=== PATIENT | male | born 1980 | race Caucasian/White ===

== ENCOUNTER 2023-01-21 12:21 | Emergency (ER) | payer SELFPAY ==
--- NOTE | ~2023-01-21 | XR_ITS ---
EXAMINATION: XR SHOULDER, LEFT CLINICAL INFORMATION: Pain COMPARISON: None available. TECHNIQUE: Three views of the left shoulder. FINDINGS: There is no evidence for an acute fracture or dislocation. There is some widening of the AC joint. This could represent the patient's baseline and element of AC joint separation cannot be excluded. Measures 8 to 9 mm. Some possible mild acromial spurring. XR/XR shoulder LT min 2V IMPRESSION: No acute finding. Some increased distance noted in the AC joint could represent the patient's baseline. An element of AC joint separation cannot be excluded.
--- NOTE | 2023-01-21 12:49 | ECG_ITS ---
Test Reason : L SHOULDER PAIN Blood Pressure : / mmHG Vent. Rate : 063 BPM Atrial Rate : 063 BPM P-R Int : 184 ms QRS Dur : 090 ms QT Int : 370 ms P-R-T Axes : 042 026 022 degrees QTc Int : 378 ms Normal sinus rhythm Normal ECG No previous ECGs available Referred By: Generic ED Physician Electronically Signed By:JOHN HERNANDEZ
[2023-01-21 13:02] VITALS: BP 122/90; PULSE 70; RESP 20; TEMP 36.5; O2SAT 94; BMI 31.9
--- NOTE | 2023-01-21 13:03 | ED_ITS ---
HPI - General Adult General Chief complaint: Extremity Problem Stated complaint: L shoulder pain no inj Time Seen by Provider: 01/21/23 14:32 Source: patient Mode of arrival: ambulatory Limitations: no limitations History of Present Illness HPI narrative: 42 yold male presents to the ED for left chronic shoulder exacerbation. patient denies any chest pain, shortness of breath, fever, chills, nausea, vomitting, swelling of extremity, recent long travel, or recent surgery. patient states he in crunching sound in shoulder when he moves shoulder. Related Data Previous Rx's Medication Instructions Recorded cyclobenzaprine 10 mg tablet 10 mg PO BEDTIME PRN muscle spasm 01/21/23 8 days #8 tabs naproxen 500 mg tablet 500 mg PO BID PRN pain #14 tabs 01/21/23 Allergies Allergy/AdvReac Type Severity Reaction Status Date / Time No Known Allergies Allergy Verified 01/21/23 13:06 Review of Systems 2 Review of Systems: LEft shoulder pain. hearing crunch Yes all other systems are reviewed and are negative [facility] Social History Social History Advance Directives: No Advance Directives Information Provided: Yes Physical Exam ED Vital Signs: Vital Signs - 24 hr 01/21/23 13:02 01/21/23 15:10 Temperature 97.7 F 98 F Pulse Rate 70 72 Respiratory Rate 20 18 Blood Pressure 122/90 H 124/88 Pulse Oximetry 94 97 Oxygen Delivery Method Room Air Room Air BMI result Body Mass Index 31.9 Const General: cooperative, healthy appearing, comfortable, no acute distress, well developed, alert and awake Orientation/consciousness: oriented to person, oriented to place, oriented to time and patient oriented x3 HENMT Head: Yes normal to inspection, Yes No palpable skull fracture present, Yes normocephalic and Yes atraumatic Eyes General: appearance normal, both eyes and all related structures Neck Neck: Yes normal visual inspection, Yes full ROM, Yes no lymphadenopathy, Yes no meningeal signs, Yes trachea midline, Yes supple, No anterior neck swelling and No tender Chest Chest palpation & inspection: normal inspection of the chest and normal palpation of entire chest wall Resp Effort & Inspection: normal respiratory effort and able to speak in complete sentences Auscultation: clear to auscultation bilaterally Cardio Jugular venous distension: no JVD Heart sounds: S1 normal heart sound present and S2 normal heart sound present GI Inspection: Yes normal to inspection and No abdominal wall ecchymosis Palpation (GI): Soft to palpation, not firm, nontender, no guarding and not rigid General: No CVA tenderness and Yes no CVA tenderness Back/Spine/Pelvis Back: no CVA tenderness, No CVA tenderness and No back tenderness Skin General skin exam: no rashes or lesions noted, elasticity normal and turgor normal Neuro General: oriented to person, oriented to place, oriented to time, patient oriented x3, gait normal, tone normal, moves all extremities, Normal light touch and pain sensation, no meningeal signs, no focal motor deficits, CN's II-XI intact bilaterally and normal sensation to monofilament Extrem General: Yes normal to inspection Shoulder/upper arm images: 2 1. positive for tenderness on palpation. Positive for pain on range of motion. Negative for any ecchymosis, crepitus, erythema, swelling, or deformity. Motor/ neuro/vascular exam intact of extremity Psych Appearance: grossly normal, well kempt and not disheveled Course Course Course Narrative: This is a rapid medical exam: Additional HPI, ROS, PE not included below will be deferred to primary provider. Patient is a 42-year-old male presenting to the emergency department with complaint of left anterior shoulder pain for a few days. States I've been dealing with it for a while, it comes and goes. Reports feels like a pinched nerve. Increased pain with lifting arm. Has used ibuprofen at home. Does a lot of lifting for work, called out last night due to the pain. Denies any precipitation injury/trauma. Plan: x-ray Medical Decision Making Medical Decision Making [facility] Narrative: 42-year-old male presents to ED for left chronic shoulder pain exacerbation that is worse on movement and hearing crunching sound when move shoulder. Patient denies any recent long travel, recent surgery, recent trauma, swelling, chest pain, neck pain, pleurisy, redness, blue discoloration, or shortness of breath. EKG negative STEMI. Troponin negative. Patient is safe for discharge Differential Diagnosis Differential Diagnoses: The differential diagnosis associated with the presentation includes ( myocardial infarction, shoulder fracture, shoulder dislocation, shoulder muscle tear) Admission/Observation Consideration of admission/observation: Escalation of care including admission/observation considered Lab Data [facility] Lab Attestation statement: I reviewed the patient's lab results. 01/21/23 14:48 01/21/23 14:48 Labs: Lab Results 01/21/23 Range/Units 14:48 WBC 7.6 (4.8-10.8) X10*3/uL RBC 5.28 (4.60-5.80) X10*6/uL Hgb 16.4 (14.0-18.0) g/dl Hct 45.7 (42.0-52.0) % MCV 86.6 (80.0-98.0) fL MCH 31.1 (27.0-33.0) pg MCHC 35.9 (31.0-36.0) g/dl RDW 12.2 (11.0-16.0) % Plt Count 268 (160-400) X10*3/uL MPV 9.0 L (9.4-12.4) fL Immature Gran % (Auto) 0.3 (0.0-0.4) % Neut % (Auto) 61.4 (45-73) % Lymph % (Auto) 24.2 (20-40) % [place] % (Auto) 7.9 (2-11) % Eos % (Auto) 5.9 H (0-4) % Baso % (Auto) 0.3 (0-2) % Lymph # (Auto) 1.9 (1.2-4.9) X10*3/uL [place] # (Auto) 0.6 (0.1-1.2) X10*3/uL Eos # (Auto) 0.5 H (0.0-0.4) X10*3/uL Baso # (Auto) 0.0 (0.0-0.2) X10*3/uL Abs Immat Gran (auto) 0.02 (0.00-0.03) X10*3/uL Absolute Neuts (auto) 4.7 (2.0-8.3) x10*3/uL Absolute Nucleated RBC 0.000 (0.0-0.012) X10*3/uL Nucleated RBC % (auto) 0.0 (0.0-0.2) /100WBC Sodium 140 (135-145) mmol/L Potassium 4.2 (3.3-5.1) mmol/L Chloride 106 (96-108) mmol/L Carbon Dioxide 26 (22-29) mmol/L Anion Gap 12 (12-20) BUN 8 L (9-16) mg/dL Creatinine 0.88 (0.5-1.4) mg/dL Estim Creat Clear Calc 120.9 Estimated GFR > 60 Random Glucose 138 H (60-115) mg/dL Calcium 10.0 (8.4-10.2) mg/dL Total Bilirubin 0.4 (0.0-1.0) mg/dL AST 47 H (5-37) U/L ALT 114 H (0-40) U/L Alkaline Phosphatase 70 (39-117) U/L Troponin I High Sens < 2.7 (<3.5-35.0) ng/L Total Protein 7.7 (6.5-8.0) g/dL Albumin 4.5 (3.5-5.0) g/dL Independent Interpretation I performed an independent interpretation of an: EKG ( normal sinus rhythm. Ventricular rate 63. Pr interval 184. QRS 90. QTC 370 NEgative STEMI), Plain X-Ray and CT Scan Discharge Plan Discharge Clinical Impression: Left shoulder pain, Separation of AC joint Patient Disposition: Home, Self-Care Instructions: Acromioclavicular Separation (ED), Shoulder Pain (ED) Additional Instructions: return to the ED immediately for any chest pain, shortness of breath, inability to move upper extremity, swelling, redness, paralysis, fever, chills, bluish discoloration, numbness/ tingling, or any other concerning symptoms. Please follow-up with our primary care provider Prescriptions: New naproxen 500 mg tablet 500 mg PO BID PRN (Reason: pain) Qty: 14 0RF cyclobenzaprine 10 mg tablet 10 mg PO BEDTIME PRN (Reason: muscle spasm) 8 Days Qty: 8 0RF Referrals: [facility] [Provider Group] Stand Alone Forms: Work/School Release Interventions: ED Discharge Assessment Last Done: 01/21/23 16:33 Discharge Date/Time: 01/21/23 16:34 Print Language: Azeri
[2023-01-21 14:53] LABS: Basophils Percent Auto 0.3 % (0-2); Eosinophils Absolute Auto 0.5 X10*3/uL (0.0-0.4); Eosinophils Percent Auto 5.9 % (0-4); Hematocrit 45.7 % (42.0-52.0); Hemoglobin 16.4 g/dl (14.0-18.0); Imm Gran Abs Auto 0.02 X10*3/uL (0.00-0.03); Imm Gran Pct Auto 0.3 % (0.0-0.4); Lymphocytes Absolute Auto 1.9 X10*3/uL (1.2-4.9); Lymphocytes Percent Auto 24.2 % (20-40); MANUAL DIFF FLAG NO; Mean Corpuscular HGB Conc 35.9 g/dl (31.0-36.0); Mean Corpuscular Hemoglobin 31.1 pg (27.0-33.0); Mean Corpuscular Volume 86.6 fL (80.0-98.0); Monocytes Absolute Auto 0.6 X10*3/uL (0.1-1.2); Monocytes Percent Auto 7.9 % (2-11); Neutrophils Absolute Auto 4.7 x10*3/uL (2.0-8.3); Neutrophils Percent Auto 61.4 % (45-73); Platelet Count 268 X10*3/uL (160-400); Red Blood Count 5.28 X10*6/uL (4.60-5.80); Red Cell Distribution Width 12.2 % (11.0-16.0); White Blood Count 7.6 X10*3/uL (4.8-10.8)
[2023-01-21 15:10] VITALS: BP 124/88; PULSE 72; RESP 18; TEMP 36.6; O2SAT 97
[2023-01-21 15:11] LABS: Alanine Aminotransferase 114 U/L (0-40); Albumin Level 4.5 g/dL (3.5-5.0); Alkaline Phosphatase 70 U/L (39-117); Anion Gap 12 (12-20); Aspartate Amino Transferase 47 U/L (5-37); Bilirubin Total 0.4 mg/dL (0.0-1.0); Blood Urea Nitrogen 8 mg/dL (9-16); Carbon Dioxide 26 mmol/L (22-29); Chloride 106 mmol/L (96-108); Creatinine Clr Calc Pharmacy 120.9; Estimated Glomerular Filt Rate > 60; Glucose Random 138 mg/dL (60-115); Potassium 4.2 mmol/L (3.3-5.1); Sodium 140 mmol/L (135-145); Total Protein 7.7 g/dL (6.5-8.0)
[2023-01-21 15:19] LABS: Troponin-I High Sensitivity < 2.7 ng/L (<3.5-35.0)
== END 2023-01-21 16:34 | disposition home or self-care (01) ==
PROVIDERS: Physician Assistant; Emergency Provider Emergency Medicine Emergency Medical Services
DX: M62.012 Separation of muscle (nontraumatic), left shoulder (principal); M25.512 Pain in left shoulder
CPT/HCPCS: 36415; 73030; 80053; 84484; 85025; 93005; 99283

== ENCOUNTER 2023-07-14 10:40 | Outpatient (AMB) | payer OTHER, SELFPAY ==
--- NOTE | 2023-07-14 12:38 | MHC.OFFWIV ---
Intake Vital Signs 07/14/23 12:39 Height 5 ft 7 in Weight 207 lb BMI 32.4 BP 130/60 Blood Pressure Location Lt brachial Position Sitting Pulse 76 Pulse Source Pulse Oximeter Temp 97.6 F Temp Source Temporal Artery Scan Pulse Oximetry (%) 97 Oxygen Delivery Method Room Air Intake Visit Reasons: [employer] Flu like symptoms (masked) Intake Note: pt is here todsy for flu started 3 days ago Patient Tobacco Use Status: Never used Tobacco Allergies No Known Allergies Allergy (Verified 07/14/23 12:41) Do you need a note to return to daycare/school/sports/work: Yes HPI HPI Comments History of Present Illness Details 42 y/o male patient who presents to walk in clinic with c/o flu like symptoms x 3 days. Fiancee at home with similar symptoms. Reports feeling tired, low energy and Headaches. PFSH Social History Patient Tobacco Use Status: Never used Tobacco Review of Systems Const All systems reviewed & are unremarkable except as noted in HPI and below Physical Exam Vital Signs: Last Vital Signs Temp 97.6 F 07/14/23 12:39 Pulse 76 07/14/23 12:39 BP 130/60 07/14/23 12:39 Pulse Ox 97 07/14/23 12:39 Oxygen Delivery Method Room Air 07/14/23 12:39 BMI result Body Mass Index 32.4 Const General: comfortable and no acute distress Nutritional Appearance: overweight Orientation/consciousness: patient oriented x3 HEENT Head: Yes normocephalic Ears: external ears normal and TM's normal bilaterally General nose exam: Normal nares present Face and sinus: Yes sinuses nontender Mouth: moist mucous membranes Throat: Yes posterior oropharynx normal Resp Effort & Inspection: normal respiratory effort, able to speak in complete sentences and no cough Auscultation: clear to auscultation bilaterally, no crackles, no rales, no rhonchi and no wheezes Cardio Rate: regular rate Rhythm: regular rhythm Neuro General: patient oriented x3 Assessment & Plan Assessment & Plan (1) Upper respiratory infection: Code(s): J06.9 - Acute upper respiratory infection, unspecified Qualifiers: URI type: acute nasopharyngitis (common cold) Qualified Code(s): J00 - Acute nasopharyngitis [common cold] Plan: - Acetaminophen for pain relief - Rest and hydrate well with warm fluids - Small meals, soup Orders: Orders SARS-CoV2/FLU/RSV Today J00 - Acute nasopharyngitis [common cold] Coding Level of Care Code Est Pt Level 3 (47583) Diagnoses Acute nasopharyngitis J00 URI type: acute nasopharyngitis (common cold) Time Spent (min) 15
[2023-07-14 12:39] VITALS: BP 130/60; PULSE 76; TEMP 36.4; O2SAT 97; BMI 32.4
== END 2023-07-14 14:26 | disposition home or self-care (01) ==
PROVIDERS: Visit Provider Nurse Practitioner Family
DX: J00 Acute nasopharyngitis [common cold] (principal)
CPT/HCPCS: 99213

== ENCOUNTER 2023-07-14 12:55 | Outpatient (REF) | payer OTHER, SELFPAY ==
[2023-07-14 17:45] LABS: Influenza A PCR NEGATIVE (Negative); Influenza B PCR NEGATIVE (Negative); Resp Syncy Virus RNA Qual PCR NEGATIVE (Negative); SARS COV2 PCR INHOUSE NEGATIVE (Negative)
== END 2023-07-14 12:56 | disposition home or self-care (01) ==
LOC: HO.LAB 12:55
PROVIDERS: Visit Provider Nurse Practitioner Family
DX: Z11.52 Encounter for screening for COVID-19 (principal); Z20.822 Contact with and (suspected) exposure to COVID-19; J00 Acute nasopharyngitis [common cold]
CPT/HCPCS: 0241U

== ENCOUNTER 2024-05-25 14:39 | Outpatient (AMB) | payer OTHER, SELFPAY ==
[2024-05-25 15:02] VITALS: BP 130/88; PULSE 82; TEMP 36.6; O2SAT 98; BMI 31.5
--- NOTE | 2024-05-25 15:02 | AM.OFFWIN_ITS ---
Intake Vital Signs 05/25/24 15:02 Height 5 ft 7 in Weight 201 lb BMI 31.5 BP 130/88 Blood Pressure Location Lt brachial Position Sitting Pulse 82 Pulse Source Pulse Oximeter Temp 97.9 F Temp Source Oral Pulse Oximetry (%) 98 Oxygen Delivery Method Room Air Intake Visit Reasons: EP-sinus pressure, nausea, headaches Intake Note: Patient here for sinus pressure, nausea, headaches and pressure behind eyes that has been present for about 4-5 days. Patient Tobacco Use Status: Never used Tobacco Allergies No Known Allergies Allergy (Verified 05/25/24 15:42) Do you need a note to return to daycare/school/sports/work: No HPI HPI Comments History of Present Illness Details History - The patient is a 43-year-old male pres enting with sinus pressure and headache. - He reports that the symptoms started f traci days prior, with a noticeable presence of pressure and headache behind the eyes. - He described an episode of blowing his nose and producing a large mucus ball tinged with blood from the right nostril. - He noted a subsequent switch of sinus pressure to the other side and cold and hot flashes experienced particularly in the car setting, but without confirmed fever. - Management has been confined to Tyleno l for headaches, and he has not reported using any additional medications. - He denies past occurrences of sinus in fections and does not have a diagnosed underlying respiratory condition such as asthma or COPD. Former smoker, no hx of vaping. Physical Exam General: Cooperative, healthy appearing, comfortable and no acute distress Orientation/consciousness: Patient oriented x3 Limitations: No limitations Head: Normal to inspection Ears: Hearing grossly normal bilaterally, external ears normal and TM's with effusions bilaterally, no infection noted Nose: Normal external nose present, Normal nares present and Nasal discharge with blood present Face and sinus: Normal facial exam and ethmoid Sinuses tender Mouth: Normal oral and palatal mucosa present and moist mucous membranes Throat: Yes tonsils normal, Yes uvula midline. Posterior oropharynx erythema Eyes: Appearance normal, both eyes and all related structures Neck: Normal visual inspection Respiratory: Clear to auscultation bilaterally. Normal respiratory effort, able to speak in complete sentences, no respiratory distress, not tachypneic, no tripod positioning and no use of accessory muscles Cardiovascular: Regular rate and rhythm. Normal S1 and S2 Skin: No rashes or lesions noted Neuro: Patient oriented x3 Extremities: Normal to inspection and Yes no clubbing, cyanosis or edema PFSH Social History Patient Tobacco Use Status: Never used Tobacco Review of Systems Const All systems reviewed & are unremarkable except as noted in HPI and below Physical Exam Vital Signs: Last Vital Signs Temp 97.9 F 05/25/24 15:02 Pulse 82 05/25/24 15:02 BP 130/88 05/25/24 15:02 Pulse Ox 98 05/25/24 15:02 Oxygen Delivery Method Room Air 05/25/24 15:02 BMI result Body Mass Index 31.5 Assessment & Plan Assessment & Plan (1) Sinusitis, acute: Code(s): J01.90 - Acute sinusitis, unspecified Qualifiers: Recurrence: non-recurrent Sinusitis location: ethmoidal Qualified Code(s): J01.20 - Acute ethmoidal sinusitis, unspecified Plan: The patient presents with acute sinusitis, and I have developed a treatment plan involving antibiotics, specifically Amoxicillin-Clavulanate, to address the suspected bacterial infection, and instructed the patient on the proper technique for nasal corticosteroid spray using Fluticasone. Testing for viral pathogens including Influenza, COVID-19, and RSV, has been ordered. The patient has no current fever and clear lung sounds. Instructions were provided on the use of a neti pot with distilled water for sinus relief. The patient will follow up if symptoms do not improve post-treatment, and will manage insurance assessments to ascertain the most cost-effective option for obtaining nasal spray medication. Patient was informed and verbally consented to the use of an ambient scribe for clinic note documentation during this visit Orders: Orders SARS-CoV2/FLU/RSV Today J01.20 - Acute ethmoidal sinusitis, unspecified, R09.89 - Other specified symptoms and signs involving the circulatory and respiratory systems Medications: New fluticasone propionate 50 mcg/actuation administer into each nostril 1 spray intranasal Q12H 16 grams 0RF amoxicillin-pot clavulanate 875-125 mg 1 tab PO Q12H 14 tabs 0RF Coding Level of Care Code New Pt Level 3 (57882) Diagnoses Acute non-recurrent ethmoidal sinusitis J01.20 Recurrence: non-recurrent Sinusitis location: ethmoidal
== END 2024-05-25 16:09 | disposition home or self-care (01) ==
PROVIDERS: Visit Provider Physician Assistant
DX: J01.20 Acute ethmoidal sinusitis, unspecified (principal)

== ENCOUNTER 2024-05-25 14:39 | Outpatient (REF) | payer OTHER, SELFPAY ==
[2024-05-26 13:15] LABS: Influenza A PCR NEGATIVE (Negative); Influenza B PCR NEGATIVE (Negative); Resp Syncy Virus RNA Qual PCR NEGATIVE (Negative); SARS COV2 PCR INHOUSE NEGATIVE (Negative)
== END 2024-05-25 14:40 | disposition home or self-care (01) ==
LOC: HO.LNP 14:39
PROVIDERS: Visit Provider Physician Assistant
DX: J01.20 Acute ethmoidal sinusitis, unspecified (principal); R09.89 Other specified symptoms and signs involving the circulatory and respiratory systems
CPT/HCPCS: 0241U